=== PATIENT | female | born 1975 | race Hispanic/Latino ===

== ENCOUNTER 2022-01-25 11:48 | Inpatient (IN) | payer OTHER ==
[2022-01-25 12:25] LABS: #Eosinphils 0.1 thou/uL (0.0-0.7); #Monocytes 0.2 thou/uL (0.11-0.59); #Neutrophils 4.1 thou/uL (1.40-6.50); %Basophils 0.3 % (0.0-1.0); %Lymphocytes 19.1 % (21.0-51.0); %Monocytes 3.3 % (0.0-10.0); %Neutrophils 76.3 % (42.0-75.0); Hemoglobin 10.2 g/dL (12.0-16.0); Mean Corpuscular HGB CONC 33.3 g/dL (32.0-36.0); Mean Corpuscular Hemoglobin 31.5 pg (27.0-31.0); Mean Corpuscular Volume 94.4 fL (78.0-98.0); Mean Platelet Volume 7.3 fL (7.4-10.4); Platelet Count 289 thou/uL (130-400); RBC Distribution Width 10.8 % (11.5-14.5); Red Blood Cell (RBC) Count 3.25 mill/uL (4.20-5.40); White Blood Cell (WBC) Count 5.4 thou/uL (4.8-10.8)
[2022-01-25] MEDS ORDERED: Ondansetron PF 4 MG/2 ML Vial ONE ×2 (12:38→15:20)
[2022-01-25] MEDS ORDERED: Fentanyl 100 MCG/2 ML VIAL ONE ×2 (12:38→15:20)
[2022-01-25 12:42] LABS: ALT (SGPT) 8 U/L (8-55); AST (SGOT) 14 U/L (5-34); Albumin 3.9 g/dL (3.5-5.0); Alkaline Phosphatase 87 U/L (40-110); Anion Gap 13 mmol/L (10-20); BUN (Urea Nitrogen) 28 mg/dL (7.0-18.7); Bilirubin, Total 0.5 mg/dL (0.2-1.2); CK (CPK) 104 U/L (29-168); Calc. Creatinine Clearance 0 mL/min (70-130); Calcium 9.1 mg/dL (7.8-10.44); Carbon Dioxide 22 mmol/L (22-29); Chloride 108 mmol/L (98-107); Glucose 97 mg/dL (70-105); Lipase 49 U/L (8-78); Magnesium 1.7 mg/dL (1.6-2.6); Potassium 4.4 mmol/L (3.5-5.1); Protein, Total 6.9 g/dL (6.0-8.3); Sodium 139 mmol/L (136-145)
[2022-01-25 13:04] LABS: Bilirubin Negative (Negative); Blood, Urine 2+ (Negative); Clarity Clear (Clear); Glucose, Urine (Dipstick) Normal (Negative); Ketone, Urine Negative (Negative); Leukocyte Negative Leu/uL (Negative); Nitrite Negative (Negative); Protein, Urine (Dipstick) 100 mg/dL (Neg-Trace); Specific Gravity, Urine 1.008 (1.002-1.036); Squamous Epithelial 0-3 HPF (0-3); Urobilinogen Normal mg/dL (Less than 2); WBC/HPF 0-3 HPF (0-3)
[2022-01-25 13:08] LABS: Bacteria/HPF 1+ HPF (None Seen); Pregnancy Test - Urine (BHCG) Negative (Negative); Pregu Control Background? CLEAR/WHITE (CLR/WHITE); Pregu Control Bar Appear? YES (CONTROL BAR); Specific Gravity 1.008 (1.002-1.036)
[2022-01-25 16:13] VITALS: BMI 30.7
[2022-01-25] MEDS: Sodium Chloride 0.9% 1,000 ML IV SCH (17:08)
[2022-01-25] MEDS ORDERED: Senokot S 8.6-50 MG TAB PO PRN (18:30)
[2022-01-25] MEDS ORDERED: Loperamide HCl 2 MG CAP PO PRN (18:30)
[2022-01-25] MEDS: HYDROcodone/Acetaminophen 5/325 mg Tablet PO PRN (19:55)
[2022-01-25] MEDS: tiZANidine HCl 4 MG TAB PO SCH (19:56)
[2022-01-25] MEDS: Allopurinol 100 MG TAB PO SCH (19:56)
[2022-01-25] MEDS: Labetalol HCl 100 MG TAB PO SCH (19:56)
[2022-01-25] MEDS: Promethazine HCl 12.5 MG in Sodium Chloride 0.9% 50 ML IVPB PRN (20:32)
[2022-01-26 00:21] LABS: SARS-CoV-2 PCR by NAA Not Detected (NotDetected)
[2022-01-26] MEDS: Sodium Chloride 0.9% 1,000 ML IV SCH (00:49)
[2022-01-26] MEDS: HYDROcodone/Acetaminophen 5/325 mg Tablet PO PRN ×4 (00:52→17:34)
[2022-01-26 06:40] LABS: Hemoglobin 8.9 g/dL (12.0-16.0); Mean Corpuscular HGB CONC 33.1 g/dL (32.0-36.0); Mean Corpuscular Hemoglobin 31.8 pg (27.0-31.0); Mean Platelet Volume 7.6 fL (7.4-10.4); Platelet Count 244 thou/uL (130-400); RBC Distribution Width 10.9 % (11.5-14.5); White Blood Cell (WBC) Count 5.2 thou/uL (4.8-10.8)
[2022-01-26 06:58] LABS: Anion Gap 11 mmol/L (10-20); BUN (Urea Nitrogen) 24 mg/dL (7.0-18.7); Calc. Creatinine Clearance 27 mL/min (70-130); Calcium 8.1 mg/dL (7.8-10.44); Carbon Dioxide 23 mmol/L (22-29); Chloride 111 mmol/L (98-107); Glucose 86 mg/dL (70-105); Potassium 3.6 mmol/L (3.5-5.1); Sodium 141 mmol/L (136-145)
[2022-01-26] MEDS ORDERED: Enoxaparin Sodium 30 MG/0.3 ML SYRINGE SC SCH (09:00)
[2022-01-26 09:08] LABS: Band 1 % (5-11); Eosinophils 5 % (0-10); Lymphocytes 56 % (21-51); MDiff Complete? YES; Monocytes 2 % (0-10); Neutrophil 35 % (42-75); Platelet Morphology Comment Appears Adequate; Polychromasia SLIGHT = 2-3 cells (100X) (0-2/hpf)
[2022-01-26] MEDS: Allopurinol 100 MG TAB PO SCH ×2 (09:15→20:53)
[2022-01-26] MEDS: Losartan 25 MG TAB PO SCH ×2 (09:15→09:35)
[2022-01-26] MEDS: Calcitriol 0.25 MCG CAP PO SCH (09:15)
[2022-01-26] MEDS: Hydroxychloroquine Sulfate 200 MG TAB PO SCH (09:15)
[2022-01-26] MEDS: Labetalol HCl 100 MG TAB PO SCH ×2 (11:09→20:54)
[2022-01-26 13:53] LABS: #Basophils 0.1 thou/uL (0.0-0.2); #Eosinphils 0.2 thou/uL (0.0-0.7); #Monocytes 0.3 thou/uL (0.11-0.59); #Neutrophils 2.1 thou/uL (1.40-6.50); %Basophils 1.3 % (0.0-1.0); %Eosinophils 3.6 % (0.0-10.0); %Lymphocytes 43.7 % (21.0-51.0); %Monocytes 5.9 % (0.0-10.0); %Neutrophils 45.6 % (42.0-75.0); Hemoglobin 9.3 g/dL (12.0-16.0); Mean Corpuscular HGB CONC 34.6 g/dL (32.0-36.0); Mean Corpuscular Volume 95.6 fL (78.0-98.0); Mean Platelet Volume 7.6 fL (7.4-10.4); Platelet Count 261 thou/uL (130-400); RBC Distribution Width 11.5 % (11.5-14.5); Red Blood Cell (RBC) Count 2.81 mill/uL (4.20-5.40); White Blood Cell (WBC) Count 4.6 thou/uL (4.8-10.8)
[2022-01-26] MEDS: Lorazepam 2 MG/ML VIAL SLOW IVP PRN (16:26)
[2022-01-26] MEDS ORDERED: GoLYTELY 4,000 ml Bottle PO SCH (17:45)
[2022-01-26] MEDS: HYDROcodone/Acetaminophen 7.5/325 mg Tablet PO PRN (20:54)
[2022-01-26] MEDS: tiZANidine HCl 4 MG TAB PO SCH (20:54)
[2022-01-27] MEDS: HYDROcodone/Acetaminophen 7.5/325 mg Tablet PO PRN ×4 (00:48→22:58)
[2022-01-27 06:50] LABS: #Basophils 0.1 thou/uL (0.0-0.2); #Eosinphils 0.2 thou/uL (0.0-0.7); #Lymphocytes 2.2 thou/uL (1.20-3.40); #Monocytes 0.3 thou/uL (0.11-0.59); #Neutrophils 2.6 thou/uL (1.40-6.50); %Basophils 1.3 % (0.0-1.0); %Eosinophils 3.4 % (0.0-10.0); %Lymphocytes 41.1 % (21.0-51.0); %Monocytes 5.8 % (0.0-10.0); %Neutrophils 48.5 % (42.0-75.0); Hemoglobin 9.5 g/dL (12.0-16.0); Mean Corpuscular HGB CONC 33.7 g/dL (32.0-36.0); Mean Corpuscular Volume 94.9 fL (78.0-98.0); Mean Platelet Volume 7.2 fL (7.4-10.4); Platelet Count 263 thou/uL (130-400); RBC Distribution Width 10.9 % (11.5-14.5); Red Blood Cell (RBC) Count 2.97 mill/uL (4.20-5.40); White Blood Cell (WBC) Count 5.5 thou/uL (4.8-10.8)
[2022-01-27 07:16] LABS: ALT (SGPT) Less than 7 U/L (8-55); AST (SGOT) 14 U/L (5-34); Albumin 3.4 g/dL (3.5-5.0); Alkaline Phosphatase 73 U/L (40-110); Anion Gap 12 mmol/L (10-20); BUN (Urea Nitrogen) 18 mg/dL (7.0-18.7); Bilirubin, Total 0.3 mg/dL (0.2-1.2); Calc. Creatinine Clearance 31 mL/min (70-130); Calcium 8.3 mg/dL (7.8-10.44); Carbon Dioxide 25 mmol/L (22-29); Chloride 109 mmol/L (98-107); Glucose 78 mg/dL (70-105); Magnesium 1.6 mg/dL (1.6-2.6); Potassium 3.9 mmol/L (3.5-5.1); Protein, Total 6.4 g/dL (6.0-8.3); Sodium 142 mmol/L (136-145)
[2022-01-27] MEDS: Losartan 25 MG TAB PO SCH (08:39)
[2022-01-27] MEDS: Labetalol HCl 100 MG TAB PO SCH ×2 (08:40→20:42)
[2022-01-27] MEDS: Hydroxychloroquine Sulfate 200 MG TAB PO SCH (08:41)
[2022-01-27] MEDS: Allopurinol 100 MG TAB PO SCH ×2 (08:43→20:41)
[2022-01-27] MEDS: Calcitriol 0.25 MCG CAP PO SCH (08:43)
[2022-01-27] MEDS ORDERED: Midazolam HCl 2 mg/2 ml Vial ONE (09:12)
[2022-01-27] MEDS ORDERED: Fentanyl 100 MCG/2 ML VIAL ONE ×2 (09:13→10:16)
[2022-01-27] MEDS ORDERED: Promethazine HCl 25 MG/ML VIAL IVPB PRN (10:17)
[2022-01-27] MEDS ORDERED: Promethazine HCl 25 MG/ML VIAL IM PRN (10:17)
[2022-01-27] MEDS ORDERED: Ondansetron HCl/PF 4 MG/2 ML Vial IVP PRN (10:17)
[2022-01-27] MEDS: Promethazine HCl 12.5 MG in Sodium Chloride 0.9% 50 ML IVPB PRN (14:58)
[2022-01-27] MEDS: tiZANidine HCl 4 MG TAB PO SCH (20:41)
[2022-01-28] MEDS: HYDROcodone/Acetaminophen 5/325 mg Tablet PO PRN (02:06)
[2022-01-28] MEDS: Lorazepam 2 MG/ML VIAL SLOW IVP PRN (04:20)
[2022-01-28 07:38] LABS: #Basophils 0.1 thou/uL (0.0-0.2); #Eosinphils 0.2 thou/uL (0.0-0.7); #Lymphocytes 2.3 thou/uL (1.20-3.40); #Monocytes 0.3 thou/uL (0.11-0.59); %Basophils 1.3 % (0.0-1.0); %Eosinophils 3.8 % (0.0-10.0); %Lymphocytes 48.4 % (21.0-51.0); %Monocytes 5.8 % (0.0-10.0); %Neutrophils 40.8 % (42.0-75.0); Hemoglobin 9.4 g/dL (12.0-16.0); Mean Corpuscular HGB CONC 33.3 g/dL (32.0-36.0); Mean Corpuscular Hemoglobin 31.8 pg (27.0-31.0); Mean Corpuscular Volume 95.6 fL (78.0-98.0); Mean Platelet Volume 7.4 fL (7.4-10.4); Platelet Count 272 thou/uL (130-400); RBC Distribution Width 10.9 % (11.5-14.5); Red Blood Cell (RBC) Count 2.95 mill/uL (4.20-5.40); White Blood Cell (WBC) Count 4.9 thou/uL (4.8-10.8)
[2022-01-28 07:59] LABS: ALT (SGPT) Less than 7 U/L (8-55); AST (SGOT) 13 U/L (5-34); Albumin 3.3 g/dL (3.5-5.0); Alkaline Phosphatase 73 U/L (40-110); Anion Gap 11 mmol/L (10-20); BUN (Urea Nitrogen) 19 mg/dL (7.0-18.7); Bilirubin, Total 0.2 mg/dL (0.2-1.2); Calc. Creatinine Clearance 32 mL/min (70-130); Calcium 8.1 mg/dL (7.8-10.44); Carbon Dioxide 25 mmol/L (22-29); Chloride 109 mmol/L (98-107); Glucose 83 mg/dL (70-105); Magnesium 1.6 mg/dL (1.6-2.6); Potassium 3.9 mmol/L (3.5-5.1); Protein, Total 6.3 g/dL (6.0-8.3); Sodium 141 mmol/L (136-145)
[2022-01-28] MEDS: Allopurinol 100 MG TAB PO SCH (09:07)
[2022-01-28] MEDS: Calcitriol 0.25 MCG CAP PO SCH (09:07)
[2022-01-28] MEDS: Hydroxychloroquine Sulfate 200 MG TAB PO SCH (09:07)
[2022-01-28] MEDS: Labetalol HCl 100 MG TAB PO SCH (09:08)
[2022-01-28] MEDS: Losartan 25 MG TAB PO SCH (09:08)
[2022-01-28 09:40] VITALS: BP 143/93; TEMP 98.5
[2022-01-28] MEDS: HYDROcodone/Acetaminophen 7.5/325 mg Tablet PO PRN (10:37)
[2022-02-01] MEDS ORDERED: SEMAGLUTIDE 1 MG/0.75 ML SC SCH (09:00)
== END 2022-01-28 14:30 | disposition home or self-care (01) | DRG 394 ==
LOC: ERS 11:48 → T4-B 14:37
PROVIDERS: ADMIT Internal Medicine; ATTEND Internal Medicine
PROC: 0DB98ZX Excision of Duodenum, Via Natural or Artificial Opening Endoscopic, Diagnostic (ICD-10-PCS; principal; 2022-01-27)
PROC: 0DBN8ZX Excision of Sigmoid Colon, Via Natural or Artificial Opening Endoscopic, Diagnostic (ICD-10-PCS; 2022-01-27)
DX: K55.9 Vascular disorder of intestine, unspecified (principal); D62 Acute posthemorrhagic anemia; N17.9 Acute kidney failure, unspecified; N18.4 Chronic kidney disease, stage 4 (severe); Z20.822 Contact with and (suspected) exposure to COVID-19; E66.9 Obesity, unspecified; K57.30 Diverticulosis of large intestine without perforation or abscess without bleeding; D63.1 Anemia in chronic kidney disease; I12.9 Hypertensive chronic kidney disease with stage 1 through stage 4 chronic kidney disease, or unspecified chronic kidney disease; N05.8 Unspecified nephritic syndrome with other morphologic changes; Z68.30 Body mass index [BMI] 30.0-30.9, adult; Z90.49 Acquired absence of other specified parts of digestive tract; Z90.710 Acquired absence of both cervix and uterus; Z83.49 Family history of other endocrine, nutritional and metabolic diseases; Z79.899 Other long term (current) drug therapy
CPT/HCPCS: 36415; 74176; 80048; 80053; 81003; 81015; 81025; 82550; 83690; 83735; 84484; 85025; 88305; 93005; 96374; 96375; 96376; J2060; J2250; J2405; J2550; J3010; J7050; U0003; U0005

== ENCOUNTER 2022-02-16 18:31 | Inpatient (IN) | payer OTHER ==
[2022-02-16] MEDS ORDERED: Ondansetron PF 4 MG/2 ML Vial ONE (18:52)
[2022-02-16] MEDS ORDERED: Morphine 4 MG/ML VIAL ONE ×3 (18:52→22:20)
[2022-02-16 19:02] LABS: #Eosinphils 0.1 thou/uL (0.0-0.7); #Lymphocytes 0.7 thou/uL (1.20-3.40); #Monocytes 0.5 thou/uL (0.11-0.59); #Neutrophils 3.7 thou/uL (1.40-6.50); %Basophils 0.2 % (0.0-1.0); %Eosinophils 1.4 % (0.0-10.0); %Lymphocytes 13.2 % (21.0-51.0); %Monocytes 10.3 % (0.0-10.0); %Neutrophils 74.9 % (42.0-75.0); Mean Corpuscular HGB CONC 34.8 g/dL (32.0-36.0); Mean Corpuscular Hemoglobin 32.6 pg (27.0-31.0); Mean Corpuscular Volume 93.7 fL (78.0-98.0); Mean Platelet Volume 7.2 fL (7.4-10.4); Platelet Count 242 thou/uL (130-400); RBC Distribution Width 11.2 % (11.5-14.5); Red Blood Cell (RBC) Count 2.76 mill/uL (4.20-5.40); White Blood Cell (WBC) Count 4.9 thou/uL (4.8-10.8)
[2022-02-16 19:11] LABS: BHCG - Serum Negative (NEGATIVE); Pregs Control Background? CLEAR/WHITE (CLR/WHITE); Pregs Control Bar Appear? YES (CONTROL BAR)
[2022-02-16] MEDS ORDERED: Cefepime 2 GM VIAL ONE (19:14)
[2022-02-16] MEDS ORDERED: Acetaminophen 500 MG TAB ONE (19:14)
[2022-02-16 19:23] LABS: ALT (SGPT) 8 U/L (8-55); AST (SGOT) 17 U/L (5-34); Albumin 3.6 g/dL (3.5-5.0); Alkaline Phosphatase 76 U/L (40-110); Anion Gap 16 mmol/L (10-20); BUN (Urea Nitrogen) 27 mg/dL (7.0-18.7); Bilirubin, Total 0.3 mg/dL (0.2-1.2); Calc. Creatinine Clearance 0 mL/min (70-130); Calcium 8.6 mg/dL (7.8-10.44); Carbon Dioxide 18 mmol/L (22-29); Chloride 105 mmol/L (98-107); Globulin 3.2 g/dL (2.4-3.5); Glucose 87 mg/dL (70-105); Lipase 21 U/L (8-78); Protein, Total 6.8 g/dL (6.0-8.3); Sodium 135 mmol/L (136-145)
[2022-02-16 20:25] LABS: Bilirubin Negative (Negative); Blood, Urine 1+ (Negative); Clarity Clear (Clear); Glucose, Urine (Dipstick) Normal (Negative); Ketone, Urine Trace mg/dL (Negative); Leukocyte Negative Leu/uL (Negative); Nitrite Negative (Negative); Protein, Urine (Dipstick) 100 mg/dL (Neg-Trace); RBC/HPF 0-3 HPF (0-3); Specific Gravity, Urine 1.007 (1.002-1.036); Squamous Epithelial 0-3 HPF (0-3); Urobilinogen Normal mg/dL (Less than 2); WBC/HPF 0-3 HPF (0-3); pH, Urine 6.5 (5.0-9.0)
[2022-02-16 20:28] LABS: Bacteria/HPF 1+ HPF (None Seen)
[2022-02-16 21:36] LABS: SARS-CoV-2 NAA Rapid Test DETECTED (NotDetected)
[2022-02-16] MEDS ORDERED: Acetaminophen 500 MG TAB PO PRN (23:20)
[2022-02-16] MEDS ORDERED: Acetaminophen 650 MG Suppository PR PRN (23:20)
[2022-02-16] MEDS ORDERED: Albuterol 200 PUFF (6.7GM INHALER) INH PRN (23:20)
[2022-02-16] MEDS ORDERED: Benzonatate 100 MG CAP PO PRN (23:20)
[2022-02-16 23:56] VITALS: BMI 31.0
[2022-02-16 23:56] LABS: #Lymphocytes 0.5 thou/uL (1.20-3.40); #Monocytes 0.4 thou/uL (0.11-0.59); #Neutrophils 3.3 thou/uL (1.40-6.50); %Eosinophils 0.6 % (0.0-10.0); %Monocytes 9.2 % (0.0-10.0); %Neutrophils 78.3 % (42.0-75.0); Hemoglobin 8.9 g/dL (12.0-16.0); Mean Corpuscular HGB CONC 34.8 g/dL (32.0-36.0); Mean Corpuscular Hemoglobin 32.9 pg (27.0-31.0); Mean Corpuscular Volume 94.6 fL (78.0-98.0); Mean Platelet Volume 6.9 fL (7.4-10.4); Platelet Count 204 thou/uL (130-400); RBC Distribution Width 11.2 % (11.5-14.5); White Blood Cell (WBC) Count 4.3 thou/uL (4.8-10.8)
[2022-02-16] MEDS ORDERED: cefTRIAXone\\ROCEPHIN 2 GM in Sodium Chloride 0.9% 100 ML IVPB SCH (23:59)
[2022-02-17] MEDS: HYDROcodone/Acetaminophen 5/325 mg Tablet PO PRN ×4 (00:16→15:26)
[2022-02-17] MEDS: Sodium Chloride 0.9% 1,000 ML IV SCH ×3 (00:16→19:34)
[2022-02-17 00:21] LABS: ALT (SGPT) 9 U/L (8-55); AST (SGOT) 15 U/L (5-34); Albumin 3.5 g/dL (3.5-5.0); Alkaline Phosphatase 67 U/L (40-110); Anion Gap 14 mmol/L (10-20); BUN (Urea Nitrogen) 27 mg/dL (7.0-18.7); Bilirubin, Total 0.3 mg/dL (0.2-1.2); Calc. Creatinine Clearance 29 mL/min (70-130); Calcium 8.2 mg/dL (7.8-10.44); Carbon Dioxide 19 mmol/L (22-29); Chloride 108 mmol/L (98-107); Globulin 2.9 g/dL (2.4-3.5); Glucose 93 mg/dL (70-105); Protein, Total 6.4 g/dL (6.0-8.3); Sodium 137 mmol/L (136-145)
[2022-02-17] MEDS: Cyclobenzaprine 10 MG TAB PO PRN ×3 (03:15→16:48)
[2022-02-17 06:08] LABS: #Lymphocytes 0.6 thou/uL (1.20-3.40); #Monocytes 0.3 thou/uL (0.11-0.59); #Neutrophils 2.1 thou/uL (1.40-6.50); %Basophils 0.7 % (0.0-1.0); %Eosinophils 0.7 % (0.0-10.0); %Lymphocytes 19.7 % (21.0-51.0); %Monocytes 11.1 % (0.0-10.0); %Neutrophils 67.8 % (42.0-75.0); Hemoglobin 8.5 g/dL (12.0-16.0); Mean Corpuscular HGB CONC 34.1 g/dL (32.0-36.0); Mean Corpuscular Hemoglobin 32.5 pg (27.0-31.0); Mean Corpuscular Volume 95.4 fL (78.0-98.0); Mean Platelet Volume 7.1 fL (7.4-10.4); Platelet Count 206 thou/uL (130-400); RBC Distribution Width 11.4 % (11.5-14.5); Red Blood Cell (RBC) Count 2.62 mill/uL (4.20-5.40); White Blood Cell (WBC) Count 3.1 thou/uL (4.8-10.8)
[2022-02-17] MEDS: Acetaminophen 325 MG TAB PO PRN (06:28)
[2022-02-17 06:37] LABS: ALT (SGPT) 7 U/L (8-55); AST (SGOT) 15 U/L (5-34); Albumin 3.2 g/dL (3.5-5.0); Alkaline Phosphatase 64 U/L (40-110); Anion Gap 12 mmol/L (10-20); BUN (Urea Nitrogen) 26 mg/dL (7.0-18.7); Bilirubin, Total 0.3 mg/dL (0.2-1.2); Calc. Creatinine Clearance 30 mL/min (70-130); Calcium 7.9 mg/dL (7.8-10.44); Carbon Dioxide 20 mmol/L (22-29); Chloride 108 mmol/L (98-107); Globulin 2.9 g/dL (2.4-3.5); Glucose 87 mg/dL (70-105); Potassium 3.7 mmol/L (3.5-5.1); Protein, Total 6.1 g/dL (6.0-8.3); Sodium 136 mmol/L (136-145)
[2022-02-17] MEDS: Heparin 5,000 UNITS/ML VIAL SC SCH ×3 (08:09→20:33)
[2022-02-17] MEDS: Hydroxychloroquine Sulfate 200 MG TAB PO SCH (08:09)
[2022-02-17] MEDS: Ascorbic Acid 500 mg Chewable Tablet PO SCH (08:10)
[2022-02-17] MEDS: Zinc Sulfate 220 MG CAP PO SCH (08:10)
[2022-02-17] MEDS: Losartan 25 MG TAB PO SCH (08:10)
[2022-02-17] MEDS: Calcitriol 0.25 MCG CAP PO SCH (08:10)
[2022-02-17] MEDS: Famotidine 20 MG TAB PO SCH (08:10)
[2022-02-17] MEDS: Allopurinol 100 MG TAB PO SCH ×2 (08:10→20:34)
[2022-02-17] MEDS: Cholecalciferol (Vitamin D3) 400 UNITS TAB PO SCH (08:11)
[2022-02-17] MEDS: Labetalol HCl 100 MG TAB PO SCH ×2 (08:11→20:32)
[2022-02-17] MEDS ORDERED: Prevnar 13-Val Conj/PF 0.5 ML SYRINGE IM ONE (09:00)
[2022-02-17] MEDS ORDERED: Fioricet 325/50/40 mg Tablet PO PRN (14:23)
[2022-02-17] MEDS ORDERED: Sodium Bicarbonate Tab 325 MG TAB PO SCH (16:45)
[2022-02-17] MEDS: Ondansetron ODT 4 MG TAB PO PRN (16:47)
[2022-02-17] MEDS ORDERED: Ibuprofen 200 MG TAB PO PRN (19:00)
[2022-02-17] MEDS: cefTRIAXone\\ROCEPHIN 2 GM in Sodium Chloride 0.9% 100 ML IVPB SCH (19:33)
[2022-02-17] MEDS: Morphine 4 MG/ML VIAL SLOW IVP PRN (19:45)
[2022-02-17] MEDS: Ondansetron PF 4 MG/2 ML Vial IVP PRN (19:46)
[2022-02-17] MEDS: tiZANidine HCl 4 MG TAB PO SCH (20:34)
[2022-02-18] MEDS: Acetaminophen 325 MG TAB PO PRN (00:01)
[2022-02-18 01:17] LABS: Creatinine, Urine 52.53 mg/dL (47-110)
[2022-02-18] MEDS: Cyclobenzaprine 10 MG TAB PO PRN (02:38)
[2022-02-18] MEDS: HYDROcodone/Acetaminophen 5/325 mg Tablet PO PRN ×2 (02:38→10:15)
[2022-02-18] MEDS: Sodium Chloride 0.9% 1,000 ML IV SCH ×2 (04:48→16:56)
[2022-02-18 06:06] LABS: #Lymphocytes 0.9 thou/uL (1.20-3.40); #Monocytes 0.3 thou/uL (0.11-0.59); #Neutrophils 1.1 thou/uL (1.40-6.50); %Basophils 0.3 % (0.0-1.0); %Eosinophils 0.6 % (0.0-10.0); %Lymphocytes 38.3 % (21.0-51.0); %Monocytes 13.1 % (0.0-10.0); %Neutrophils 47.7 % (42.0-75.0); Hemoglobin 9.1 g/dL (12.0-16.0); Mean Corpuscular Hemoglobin 32.5 pg (27.0-31.0); Mean Corpuscular Volume 95.5 fL (78.0-98.0); Mean Platelet Volume 6.8 fL (7.4-10.4); Platelet Count 173 thou/uL (130-400); RBC Distribution Width 11.3 % (11.5-14.5); Red Blood Cell (RBC) Count 2.78 mill/uL (4.20-5.40); White Blood Cell (WBC) Count 2.4 thou/uL (4.8-10.8)
[2022-02-18 06:31] LABS: Anion Gap 14 mmol/L (10-20); BUN (Urea Nitrogen) 25 mg/dL (7.0-18.7); Calc. Creatinine Clearance 30 mL/min (70-130); Calcium 8.3 mg/dL (7.8-10.44); Carbon Dioxide 21 mmol/L (22-29); Chloride 105 mmol/L (98-107); Glucose 80 mg/dL (70-105); Potassium 3.9 mmol/L (3.5-5.1); Sodium 136 mmol/L (136-145)
[2022-02-18] MEDS: Famotidine 20 MG TAB PO SCH (08:38)
[2022-02-18] MEDS: Allopurinol 100 MG TAB PO SCH ×2 (08:38→20:20)
[2022-02-18] MEDS: Calcitriol 0.25 MCG CAP PO SCH (08:38)
[2022-02-18] MEDS: Ascorbic Acid 500 mg Chewable Tablet PO SCH (08:38)
[2022-02-18] MEDS: Zinc Sulfate 220 MG CAP PO SCH (08:38)
[2022-02-18] MEDS: Sodium Bicarbonate Tab 325 MG TAB PO SCH (08:38)
[2022-02-18] MEDS: Labetalol HCl 100 MG TAB PO SCH ×2 (08:39→20:19)
[2022-02-18] MEDS: Losartan 25 MG TAB PO SCH (08:40)
[2022-02-18] MEDS: Cholecalciferol (Vitamin D3) 400 UNITS TAB PO SCH (08:40)
[2022-02-18] MEDS: Hydroxychloroquine Sulfate 200 MG TAB PO SCH (08:41)
[2022-02-18] MEDS: Heparin 5,000 UNITS/ML VIAL SC SCH ×3 (08:41→20:20)
[2022-02-18] MEDS: Ondansetron ODT 4 MG TAB PO PRN (11:18)
[2022-02-18] MEDS: Lorazepam 0.5 MG TAB PO PRN (14:25)
[2022-02-18] MEDS: Ondansetron PF 4 MG/2 ML Vial IVP PRN ×2 (14:30→20:19)
[2022-02-18] MEDS: Morphine 4 MG/ML VIAL SLOW IVP PRN ×2 (14:38→20:24)
[2022-02-18] MEDS: cefTRIAXone\\ROCEPHIN 2 GM in Sodium Chloride 0.9% 100 ML IVPB SCH (20:19)
[2022-02-18] MEDS: tiZANidine HCl 4 MG TAB PO SCH (20:19)
[2022-02-19] MEDS: Sodium Chloride 0.9% 1,000 ML IV SCH (02:35)
[2022-02-19] MEDS: Morphine 4 MG/ML VIAL SLOW IVP PRN ×5 (02:42→19:42)
[2022-02-19] MEDS: Ondansetron PF 4 MG/2 ML Vial IVP PRN ×3 (02:43→16:46)
[2022-02-19] MEDS: Cepastat Lozenges 1 LOZ PO PRN ×3 (05:00→19:25)
[2022-02-19 06:39] LABS: Hemoglobin 9.6 g/dL (12.0-16.0); Mean Corpuscular HGB CONC 33.7 g/dL (32.0-36.0); Mean Corpuscular Hemoglobin 32.1 pg (27.0-31.0); Mean Corpuscular Volume 95.2 fL (78.0-98.0); Mean Platelet Volume 7.6 fL (7.4-10.4); Platelet Count 163 thou/uL (130-400); RBC Distribution Width 11.5 % (11.5-14.5); White Blood Cell (WBC) Count 2.4 thou/uL (4.8-10.8)
[2022-02-19 06:48] LABS: Anion Gap 12 mmol/L (10-20); BUN (Urea Nitrogen) 24 mg/dL (7.0-18.7); Calc. Creatinine Clearance 32 mL/min (70-130); Carbon Dioxide 21 mmol/L (22-29); Chloride 108 mmol/L (98-107); Potassium 3.4 mmol/L (3.5-5.1); Sodium 138 mmol/L (136-145)
[2022-02-19 06:49] LABS: Calcium 7.9 mg/dL (7.8-10.44); Glucose 86 mg/dL (70-105)
[2022-02-19 07:41] LABS: Band 25 % (5-11); Eosinophils 3 % (0-10); Lymphocytes 38 % (21-51); MDiff Complete? YES; Monocytes 9 % (0-10); Neutrophil 16 % (42-75); Platelet Morphology Comment Appears Adequate; Polychromasia SLIGHT = 2-3 cells (100X) (0-2/hpf); Reactive Lymphocytes 9 % (0-10)
[2022-02-19] MEDS: Famotidine 20 MG TAB PO SCH (08:36)
[2022-02-19] MEDS: Ascorbic Acid 500 mg Chewable Tablet PO SCH (08:36)
[2022-02-19] MEDS: Labetalol HCl 100 MG TAB PO SCH ×2 (08:36→19:43)
[2022-02-19] MEDS: Calcitriol 0.25 MCG CAP PO SCH (08:36)
[2022-02-19] MEDS: Sodium Bicarbonate Tab 325 MG TAB PO SCH (08:36)
[2022-02-19] MEDS: Cholecalciferol (Vitamin D3) 400 UNITS TAB PO SCH (08:36)
[2022-02-19] MEDS: Heparin 5,000 UNITS/ML VIAL SC SCH ×3 (08:37→19:41)
[2022-02-19] MEDS: Allopurinol 100 MG TAB PO SCH ×2 (08:37→19:44)
[2022-02-19] MEDS: Losartan 25 MG TAB PO SCH (08:37)
[2022-02-19] MEDS: Hydroxychloroquine Sulfate 200 MG TAB PO SCH (08:37)
[2022-02-19] MEDS: Zinc Sulfate 220 MG CAP PO SCH (08:37)
[2022-02-19] MEDS ORDERED: Senokot S 8.6-50 MG TAB PO PRN (10:50)
[2022-02-19] MEDS ORDERED: hydrALAZINE 20 MG/ML VIAL SLOW IVP PRN (10:50)
[2022-02-19] MEDS ORDERED: Artificial Tear Sol 15 ML BOT EA EYE PRN (10:50)
[2022-02-19] MEDS ORDERED: Loperamide HCl 2 MG CAP PO PRN (10:50)
[2022-02-19] MEDS ORDERED: Loratadine 10 MG TAB PO PRN (10:50)
[2022-02-19] MEDS ORDERED: Calcium Carbonate 500 MG ChewTAB PO PRN (10:50)
[2022-02-19] MEDS ORDERED: Acetaminophen 500 MG TAB PO PRN (10:50)
[2022-02-19] MEDS ORDERED: Potassium Chloride 20 MEQ TAB PO SCH (11:00)
[2022-02-19] MEDS: cefTRIAXone\\ROCEPHIN 2 GM in Sodium Chloride 0.9% 100 ML IVPB SCH (19:40)
[2022-02-19] MEDS: tiZANidine HCl 4 MG TAB PO SCH (19:41)
[2022-02-19] MEDS ORDERED: Promethazine HCl 12.5 MG in Sodium Chloride 0.9% 50 ML IVPB SCH (21:00)
[2022-02-20] MEDS: Morphine 4 MG/ML VIAL SLOW IVP PRN ×4 (04:55→21:02)
[2022-02-20] MEDS: Cepastat Lozenges 1 LOZ PO PRN ×2 (04:57→21:31)
[2022-02-20 06:37] LABS: Hemoglobin 9.7 g/dL (12.0-16.0); Mean Corpuscular HGB CONC 33.7 g/dL (32.0-36.0); Mean Corpuscular Volume 95.1 fL (78.0-98.0); Mean Platelet Volume 6.8 fL (7.4-10.4); Platelet Count 149 thou/uL (130-400); RBC Distribution Width 11.7 % (11.5-14.5); Red Blood Cell (RBC) Count 3.03 mill/uL (4.20-5.40); White Blood Cell (WBC) Count 2.4 thou/uL (4.8-10.8)
[2022-02-20 06:57] LABS: Band 10 % (5-11); Eosinophils 2 % (0-10); Lymphocytes 59 % (21-51); MDiff Complete? YES; Monocytes 6 % (0-10); Neutrophil 17 % (42-75); Reactive Lymphocytes 6 % (0-10)
[2022-02-20 07:00] LABS: ALT (SGPT) 15 U/L (8-55); AST (SGOT) 32 U/L (5-34); Albumin 3.2 g/dL (3.5-5.0); Alkaline Phosphatase 61 U/L (40-110); Anion Gap 11 mmol/L (10-20); BUN (Urea Nitrogen) 19 mg/dL (7.0-18.7); Bilirubin, Total 0.2 mg/dL (0.2-1.2); CRP (Inflammatory) 0.99 mg/dL (= or < 0.5); Calc. Creatinine Clearance 33 mL/min (70-130); Calcium 8.4 mg/dL (7.8-10.44); Carbon Dioxide 23 mmol/L (22-29); Chloride 109 mmol/L (98-107); Glucose 79 mg/dL (70-105); Magnesium 1.7 mg/dL (1.6-2.6); Potassium 3.9 mmol/L (3.5-5.1); Protein, Total 6.2 g/dL (6.0-8.3); Sodium 139 mmol/L (136-145)
[2022-02-20 07:02] LABS: Lactic Acid 0.4 mmol/L (0.5-2.2)
[2022-02-20] MEDS: Sodium Bicarbonate Tab 325 MG TAB PO SCH (08:51)
[2022-02-20] MEDS: Ascorbic Acid 500 mg Chewable Tablet PO SCH (08:51)
[2022-02-20] MEDS: Famotidine 20 MG TAB PO SCH (08:52)
[2022-02-20] MEDS: Allopurinol 100 MG TAB PO SCH ×2 (08:52→21:03)
[2022-02-20] MEDS: Calcitriol 0.25 MCG CAP PO SCH (08:52)
[2022-02-20] MEDS: Cholecalciferol (Vitamin D3) 400 UNITS TAB PO SCH (08:52)
[2022-02-20] MEDS: Labetalol HCl 100 MG TAB PO SCH ×2 (08:52→21:31)
[2022-02-20] MEDS: Zinc Sulfate 220 MG CAP PO SCH (08:52)
[2022-02-20] MEDS: Losartan 25 MG TAB PO SCH (08:52)
[2022-02-20] MEDS: Heparin 5,000 UNITS/ML VIAL SC SCH ×3 (08:53→21:03)
[2022-02-20] MEDS: Hydroxychloroquine Sulfate 200 MG TAB PO SCH (08:54)
[2022-02-20] MEDS: Ondansetron PF 4 MG/2 ML Vial IVP PRN ×3 (10:56→21:03)
[2022-02-20 16:42] LABS: Phosphorus 3.8 mg/dL (2.3-4.7)
[2022-02-20] MEDS ORDERED: Sodium Chloride 0.9% 1,000 ML IV SCH (18:15)
[2022-02-20] MEDS: tiZANidine HCl 4 MG TAB PO SCH (21:02)
[2022-02-20] MEDS: cefTRIAXone\\ROCEPHIN 2 GM in Sodium Chloride 0.9% 100 ML IVPB SCH (21:04)
[2022-02-20] MEDS: Lorazepam 0.5 MG TAB PO PRN (21:37)
[2022-02-21] MEDS: Ondansetron PF 4 MG/2 ML Vial IVP PRN (05:34)
[2022-02-21] MEDS: Morphine 4 MG/ML VIAL SLOW IVP PRN (05:34)
[2022-02-21 06:46] LABS: Anion Gap 12 mmol/L (10-20); BUN (Urea Nitrogen) 18 mg/dL (7.0-18.7); Calc. Creatinine Clearance 35 mL/min (70-130); Calcium 8.4 mg/dL (7.8-10.44); Carbon Dioxide 24 mmol/L (22-29); Chloride 108 mmol/L (98-107); Glucose 80 mg/dL (70-105); Potassium 4.2 mmol/L (3.5-5.1); Sodium 140 mmol/L (136-145)
[2022-02-21 07:54] LABS: Band 24 % (5-11); Eosinophils 2 % (0-10); Hemoglobin 9.9 g/dL (12.0-16.0); Lymphocytes 46 % (21-51); MDiff Complete? YES; Mean Corpuscular HGB CONC 33.4 g/dL (32.0-36.0); Mean Corpuscular Hemoglobin 31.9 pg (27.0-31.0); Mean Corpuscular Volume 95.4 fL (78.0-98.0); Mean Platelet Volume 7.3 fL (7.4-10.4); Monocytes 4 % (0-10); Neutrophil 21 % (42-75); Platelet Count 124 thou/uL (130-400); Platelet Morphology Comment Appears Decreased; Polychromasia SLIGHT = 2-3 cells (100X) (0-2/hpf); RBC Distribution Width 11.4 % (11.5-14.5); Reactive Lymphocytes 2 % (0-10); Red Blood Cell (RBC) Count 3.09 mill/uL (4.20-5.40)
[2022-02-21 07:58] VITALS: BP 160/95; TEMP 98.5
[2022-02-21] MEDS: Famotidine 20 MG TAB PO SCH (07:58)
[2022-02-21] MEDS: Ondansetron ODT 4 MG TAB PO PRN (07:58)
[2022-02-21] MEDS: Sodium Bicarbonate Tab 325 MG TAB PO SCH (07:59)
[2022-02-21] MEDS: Hydroxychloroquine Sulfate 200 MG TAB PO SCH (07:59)
[2022-02-21] MEDS: Ascorbic Acid 500 mg Chewable Tablet PO SCH (07:59)
[2022-02-21] MEDS: Allopurinol 100 MG TAB PO SCH (07:59)
[2022-02-21] MEDS: Cholecalciferol (Vitamin D3) 400 UNITS TAB PO SCH (07:59)
[2022-02-21] MEDS: Zinc Sulfate 220 MG CAP PO SCH (07:59)
[2022-02-21] MEDS: Labetalol HCl 100 MG TAB PO SCH (07:59)
[2022-02-21] MEDS: Calcitriol 0.25 MCG CAP PO SCH (07:59)
[2022-02-21] MEDS: Heparin 5,000 UNITS/ML VIAL SC SCH (07:59)
[2022-02-21] MEDS: Losartan 25 MG TAB PO SCH (07:59)
[2022-02-21 15:02] LABS: Urine Total Volume 1250 mL (600-1600)
[2022-02-21 15:02] LABS: Body Surface Area 1.91
[2022-02-21 15:59] LABS: Protein - 24 Hr 5925 mg/24 hr (Less than 300); Protein, Urine 474 mg/dL (1-14)
[2022-02-21 16:28] LABS: Creatinine, Urine 72.8 mg/dL (47-110)
[2022-02-22] MEDS ORDERED: Semaglutide [Ozempic] 1 MG/0.75 ML Pen.Injctr SC SCH (09:00)
== END 2022-02-21 15:30 | disposition home or self-care (01) | DRG 871 ==
LOC: ERS 18:31 → T4-B 22:21
PROVIDERS: ADMIT Family Medicine; ATTEND Internal Medicine
PROC: 3E03329 Introduction of Other Anti-infective into Peripheral Vein, Percutaneous Approach (ICD-10-PCS; principal; 2022-02-16)
PROC: 8E0ZXY6 Isolation (ICD-10-PCS; 2022-02-16)
DX: A41.9 Sepsis, unspecified organism (principal); U07.1 COVID-19; N39.0 Urinary tract infection, site not specified; N18.4 Chronic kidney disease, stage 4 (severe); E87.2 Acidosis; N17.9 Acute kidney failure, unspecified; N25.81 Secondary hyperparathyroidism of renal origin; R65.20 Severe sepsis without septic shock; I12.9 Hypertensive chronic kidney disease with stage 1 through stage 4 chronic kidney disease, or unspecified chronic kidney disease; D63.1 Anemia in chronic kidney disease; E66.9 Obesity, unspecified; E87.6 Hypokalemia; Z90.710 Acquired absence of both cervix and uterus; Z68.31 Body mass index [BMI] 31.0-31.9, adult
CPT/HCPCS: 36415; 36416; 71250; 76770; 80048; 80053; 81003; 81015; 82306; 82570; 82575; 83605; 83690; 83735; 83970; 84100; 84145; 84156; 84703; 85025; 85379; 86140; 87040; 87086; 93005; 96365; 96375; 96376; J0692; J0696; J1644; J2270; J2405; J2550; J3490; J7050; Q0162

== ENCOUNTER 2022-06-17 11:01 | Observation (INO) | payer OTHER ==
[2022-06-17 11:41] LABS: #Basophils 0.1 thou/uL (0.0-0.2); #Eosinphils 0.1 thou/uL (0.0-0.7); #Lymphocytes 1.8 thou/uL (1.20-3.40); #Monocytes 0.4 thou/uL (0.11-0.59); #Neutrophils 4.2 thou/uL (1.40-6.50); %Basophils 1.2 % (0.0-1.0); %Eosinophils 1.6 % (0.0-10.0); %Lymphocytes 27.9 % (21.0-51.0); %Monocytes 5.5 % (0.0-10.0); %Neutrophils 63.8 % (42.0-75.0); Hemoglobin 10.5 g/dL (12.0-16.0); Mean Corpuscular HGB CONC 33.6 g/dL (32.0-36.0); Mean Corpuscular Hemoglobin 31.5 pg (27.0-31.0); Mean Corpuscular Volume 93.6 fL (78.0-98.0); Mean Platelet Volume 7.9 fL (7.4-10.4); Platelet Count 277 thou/uL (130-400); RBC Distribution Width 10.9 % (11.5-14.5); Red Blood Cell (RBC) Count 3.33 mill/uL (4.20-5.40); White Blood Cell (WBC) Count 6.6 thou/uL (4.8-10.8)
[2022-06-17 12:15] LABS: ALT (SGPT) 9 U/L (8-55); AST (SGOT) 16 U/L (5-34); Albumin 4.2 g/dL (3.5-5.0); Alkaline Phosphatase 82 U/L (40-110); Anion Gap 13 mmol/L (10-20); BUN (Urea Nitrogen) 32 mg/dL (7.0-18.7); Bilirubin, Total 0.5 mg/dL (0.2-1.2); Calc. Creatinine Clearance 0 mL/min (70-130); Calcium 9.3 mg/dL (7.8-10.44); Carbon Dioxide 22 mmol/L (22-29); Chloride 109 mmol/L (98-107); Estimated GFR 16; Globulin 3.2 g/dL (2.4-3.5); Glucose 90 mg/dL (70-105); Lipase 44 U/L (8-78); Potassium 3.9 mmol/L (3.5-5.1); Protein, Total 7.4 g/dL (6.0-8.3); Sodium 140 mmol/L (136-145)
[2022-06-17 12:24] LABS: CKMB 0.8 ng/mL (0-6.6)
[2022-06-17] MEDS ORDERED: Aspirin Chewable 81 MG TAB ONE (14:09)
[2022-06-17] MEDS ORDERED: Nitroglycerin 0.4 MG TAB 1 EACH ONE (14:09)
[2022-06-17] MEDS ORDERED: Ondansetron ODT 4 MG TAB PO PRN (15:23)
[2022-06-17] MEDS ORDERED: Ondansetron ODT 4 MG TAB SL PRN (15:34)
[2022-06-17] MEDS ORDERED: Lorazepam 0.5 MG TAB PO PRN (15:37)
[2022-06-17 15:39] LABS: Troponin I 0.011 ng/mL (< 0.028)
[2022-06-17 15:43] VITALS: BMI 28.0
[2022-06-17 16:09] LABS: SARS-CoV-2 NAA Rapid Test Not Detected (NotDetected)
[2022-06-17] MEDS ORDERED: Lidocaine 2% Viscous Solution 10 ML, Aluminum & Magnesium Hydroxide 30 ML SSW SCH (16:15)
[2022-06-17] MEDS ORDERED: Sucralfate 1 GM/10 ML UDCUP PO SCH (16:45)
[2022-06-17] MEDS ORDERED: Sucralfate 1 GM/10 ML UDCUP ONE (17:23)
[2022-06-17] MEDS ORDERED: Labetalol HCl 100 MG TAB PO SCH (21:00)
[2022-06-17] MEDS: tiZANidine HCl 4 MG TAB PO SCH (21:06)
[2022-06-17] MEDS: Heparin 5,000 UNITS/ML VIAL SC SCH (21:06)
[2022-06-17] MEDS: Allopurinol 100 MG TAB PO SCH (21:06)
[2022-06-17 21:17] LABS: Troponin I 0.015 ng/mL (< 0.028)
[2022-06-18] MEDS ORDERED: Lactated Ringer's 500 ML IV SCH (02:15)
[2022-06-18 02:26] LABS: #Basophils 0.1 thou/uL (0.0-0.2); #Eosinphils 0.1 thou/uL (0.0-0.7); #Lymphocytes 2.1 thou/uL (1.20-3.40); #Monocytes 0.4 thou/uL (0.11-0.59); #Neutrophils 3.1 thou/uL (1.40-6.50); %Eosinophils 2.2 % (0.0-10.0); %Lymphocytes 36.7 % (21.0-51.0); %Monocytes 6.4 % (0.0-10.0); %Neutrophils 53.7 % (42.0-75.0); Hemoglobin 9.2 g/dL (12.0-16.0); Mean Corpuscular HGB CONC 33.2 g/dL (32.0-36.0); Mean Corpuscular Hemoglobin 31.1 pg (27.0-31.0); Mean Corpuscular Volume 93.9 fL (78.0-98.0); Mean Platelet Volume 7.7 fL (7.4-10.4); Platelet Count 215 thou/uL (130-400); Red Blood Cell (RBC) Count 2.94 mill/uL (4.20-5.40); White Blood Cell (WBC) Count 5.8 thou/uL (4.8-10.8)
[2022-06-18 02:46] LABS: Troponin I 0.021 ng/mL (< 0.028)
[2022-06-18 02:48] LABS: Anion Gap 13 mmol/L (10-20); BUN (Urea Nitrogen) 35 mg/dL (7.0-18.7); Calc. Creatinine Clearance 24 mL/min (70-130); Calcium 8.8 mg/dL (7.8-10.44); Carbon Dioxide 22 mmol/L (22-29); Chloride 109 mmol/L (98-107); Estimated GFR 16; Glucose 90 mg/dL (70-105); Sodium 140 mmol/L (136-145)
[2022-06-18] MEDS ORDERED: Famotidine 20 MG TAB PO SCH (03:15)
[2022-06-18] MEDS: Acetaminophen 325 MG TAB PO PRN ×3 (03:33→21:31)
[2022-06-18 07:05] LABS: Troponin I 0.015 ng/mL (< 0.028)
[2022-06-18] MEDS: Allopurinol 100 MG TAB PO SCH (08:48)
[2022-06-18] MEDS: Lactated Ringer's 1,000 ML IV SCH ×3 (08:48→22:03)
[2022-06-18] MEDS: Hydroxychloroquine Sulfate 200 MG TAB PO SCH (08:48)
[2022-06-18 09:11] LABS: BHCG - Serum Negative (NEGATIVE); Pregs Control Background? CLEAR/WHITE (CLR/WHITE); Pregs Control Bar Appear? YES (CONTROL BAR)
[2022-06-18] MEDS ORDERED: ADENOSINE 60 MG/20 ML VIAL ONE (09:19)
[2022-06-18] MEDS ORDERED: Allopurinol 100 MG TAB PO SCH (13:45)
[2022-06-18] MEDS: Heparin 5,000 UNITS/ML VIAL SC SCH ×3 (14:44→20:08)
[2022-06-18] MEDS ORDERED: hydrALAZINE 20 MG/ML VIAL SLOW IVP PRN (17:44)
[2022-06-18] MEDS: tiZANidine HCl 4 MG TAB PO SCH (20:08)
[2022-06-19 07:41] VITALS: TEMP 97.8
[2022-06-19 07:48] LABS: Anion Gap 13 mmol/L (10-20); BUN (Urea Nitrogen) 25 mg/dL (7.0-18.7); Calc. Creatinine Clearance 26 mL/min (70-130); Calcium 8.8 mg/dL (7.8-10.44); Carbon Dioxide 23 mmol/L (22-29); Chloride 109 mmol/L (98-107); Estimated GFR 18; Glucose 92 mg/dL (70-105); Potassium 4.1 mmol/L (3.5-5.1); Sodium 141 mmol/L (136-145)
[2022-06-19] MEDS: Hydroxychloroquine Sulfate 200 MG TAB PO SCH (08:37)
[2022-06-19] MEDS: Heparin 5,000 UNITS/ML VIAL SC SCH (08:37)
[2022-06-19] MEDS: Lactated Ringer's 1,000 ML IV SCH (08:47)
[2022-06-19 12:29] VITALS: BP 177/95
[2022-06-19] MEDS ORDERED: Labetalol HCl 100 MG TAB PO SCH (12:37)
[2022-06-20] MEDS ORDERED: FLU VACC QS2022-23(6MOS UP)/PF 60 MCG/0.5 ML SYRINGE IM ONE (09:00)
[2022-06-20] MEDS ORDERED: Prevnar 13-Val Conj/PF 0.5 ML SYRINGE IM ONE (09:00)
== END 2022-06-19 14:15 | disposition home or self-care (01) ==
LOC: ERS 11:01 → ERHOLD 14:27 → 2SW 19:52
PROVIDERS: ADMIT Emergency Medicine; ATTEND Emergency Medicine
DX: R07.2 Precordial pain (principal); I12.9 Hypertensive chronic kidney disease with stage 1 through stage 4 chronic kidney disease, or unspecified chronic kidney disease; N18.4 Chronic kidney disease, stage 4 (severe); D63.1 Anemia in chronic kidney disease; N17.9 Acute kidney failure, unspecified; E66.9 Obesity, unspecified; Z68.28 Body mass index [BMI] 28.0-28.9, adult; Z79.899 Other long term (current) drug therapy; Z20.822 Contact with and (suspected) exposure to COVID-19
CPT/HCPCS: 36415; 71045; 78452; 80048; 80053; 82553; 83690; 84484; 84703; 85025; 93005; 93010; 93017; 94760; 96372; 96374; A9500; G0378; J0153; J0360; J1644; J7120; Q0162; U0002

== ENCOUNTER 2022-10-31 21:07 | Emergency (ER) | payer OTHER ==
[2022-10-31] MEDS ORDERED: Mag-Al 1200 mg/1200 mg/30 ML UDCUP ONE (23:08)
[2022-10-31] MEDS ORDERED: Lidocaine Viscous Sol 2% 15 ml UD Cup ONE (23:08)
[2022-10-31 23:14] LABS: #Eosinphils 0.1 thou/uL (0.0-0.7); #Lymphocytes 1.9 thou/uL (1.20-3.40); #Monocytes 0.5 thou/uL (0.11-0.59); #Neutrophils 4.1 thou/uL (1.40-6.50); %Lymphocytes 29.7 % (21.0-51.0); %Neutrophils 62.3 % (42.0-75.0); Hemoglobin 10.9 g/dL (12.0-16.0); Mean Corpuscular Hemoglobin 31.9 pg (27.0-31.0); Mean Corpuscular Volume 93.9 fl (78.0-98.0); Mean Platelet Volume 7.6 fL (7.4-10.4); Platelet Count 206 10x3/uL (130-400); RBC Distribution Width 10.5 % (11.5-14.5); Red Blood Cell (RBC) Count 3.41 mill/uL (4.20-5.40); White Blood Cell (WBC) Count 6.5 10x3/uL (4.8-10.8)
[2022-10-31 23:22] LABS: BHCG - Serum Negative (NEGATIVE); Pregs Control Background? CLEAR/WHITE (CLR/WHITE); Pregs Control Bar Appear? YES (CONTROL BAR)
[2022-10-31 23:34] LABS: ALT (SGPT) 11 U/L (8-55); AST (SGOT) 16 U/L (5-34); Alkaline Phosphatase 97 U/L (40-110); Anion Gap 17 mmol/L (10-20); BUN (Urea Nitrogen) 36 mg/dL (7.0-18.7); Calc. Creatinine Clearance 0 mL/min (70-130); Calcium 8.8 mg/dL (7.8-10.44); Carbon Dioxide 22 mmol/L (22-29); Chloride 109 mmol/L (98-107); Estimated GFR 16; Globulin 3.5 g/dL (2.4-3.5); Glucose 90 mg/dL (70-105); Potassium 4.3 mmol/L (3.5-5.1); Protein, Total 7.5 g/dL (6.0-8.3); Sodium 144 mmol/L (136-145)
[2022-10-31] MEDS ORDERED: Lorazepam 1 MG TAB ONE (23:35)
[2022-11-01] MEDS ORDERED: Ketorolac Tromethamine 30 MG/ML VIAL ONE (00:06)
[2022-11-01] MEDS ORDERED: Dexamethasone 4 MG TAB ONE (00:07)
[2022-11-01 00:19] LABS: Bilirubin, Total 0.3 mg/dL (0.2-1.2)
== END 2022-11-01 01:30 | disposition home or self-care (01) ==
LOC: ERS 21:07
DX: B34.9 Viral infection, unspecified (principal); I12.0 Hypertensive chronic kidney disease with stage 5 chronic kidney disease or end stage renal disease; N18.6 End stage renal disease
CPT/HCPCS: 36415; 71045; 80053; 84703; 85025; 96372; J1885; J8540

== ENCOUNTER 2023-03-10 12:29 | Outpatient (CLI) | payer OTHER | END 2023-03-10 12:30 | disposition home or self-care (01) | LOC: BICMRI 12:29 | PROVIDERS: ATTEND Specialist | DX: M54.31 Sciatica, right side (principal); M25.9 Joint disorder, unspecified; M51.37 Other intervertebral disc degeneration, lumbosacral region | CPT/HCPCS: 72148 ==

== ENCOUNTER 2024-04-21 18:22 | Emergency (ER) | payer OTHER ==
[2024-04-21] MEDS ORDERED: Metoclopramide HCl 10 MG (2 mL) VIAL ONE (18:48)
[2024-04-21 19:44] LABS: #Basophils 0.05 10x3/uL (0.0-0.2); %Basophils 0.7 % (0.0-1.0); %Eosinophils 2.3 % (0.0-10.0); %Lymphocytes 30.2 % (21.0-51.0); %Monocytes 5.2 % (0.0-10.0); %Neutrophils 61.5 % (42.0-75.0); Hematocrit 29.4 % (36.0-47.0); Hemoglobin 9.7 g/dL (12.0-16.0); Mean Corpuscular Hemoglobin 30.7 pg (27.0-31.0); Mean Platelet Volume 9.8 fL (7.4-10.4); Platelet Count 255 10x3/uL (130-400); RBC Distribution Width 11.9 % (11.5-14.5); Red Blood Cell (RBC) Count 3.16 mill/uL (4.20-5.40)
[2024-04-21 19:56] LABS: Amphetamine Not Detected (NotDetected); Barbiturates Screen Not Detected (NotDetected); Benzodiazepine Screen Detected (NotDetected); Cocaine Metabolite Screen Not Detected (NotDetected); Methadone Not Detected (NotDetected); Methamphetamine Not Detected (NotDetected); Opiate Screen Not Detected (NotDetected); Oxycodone Screen Not Detected (NotDetected); Phencyclidine (PCP) Not Detected (NotDetected); THC/Cannabinoid Screen Not Detected (NotDetected); Tricyclic Screen Not Detected (NotDetected)
[2024-04-21 20:01] LABS: ALT (SGPT) 6 U/L (8-55); AST (SGOT) 13 U/L (5-34); Acetaminophen Less than 10 mcg/mL (10.0-30.0); Albumin 3.3 g/dL (3.5-5.0); Alcohol Less than 10.0 mg/dL (Less than 10); Alkaline Phosphatase 118 U/L (40-110); Anion Gap 15 mmol/L (10-20); BUN (Urea Nitrogen) 35 mg/dL (7.0-18.7); Bilirubin, Total 0.3 mg/dL (0.2-1.2); Calc. Creatinine Clearance 0 mL/min (70-130); Calcium 8.2 mg/dL (7.8-10.44); Carbon Dioxide 21 mmol/L (22-29); Chloride 110 mmol/L (98-107); Estimated GFR 14; Globulin 3.6 g/dL (2.4-3.5); Glucose 94 mg/dL (70-105); Potassium 3.7 mmol/L (3.5-5.1); Protein, Total 6.9 g/dL (6.0-8.3); Salicylate Less than 8.0 mg/dL (15.0-30.0); Sodium 142 mmol/L (136-145)
[2024-04-21 20:06] LABS: Troponin I 0.019 ng/mL (< 0.028)
[2024-04-21] MEDS ORDERED: Lorazepam 2 MG/ML VIAL ONE (20:12)
[2024-04-21 20:20] LABS: HCG, Total Quant 2.7 mIU/mL (See Ranges)
[2024-04-21 20:24] LABS: Thyroid Stimulating Hormone 1.2869 uIU/mL (0.35-4.94)
== END 2024-04-21 22:21 | disposition home or self-care (01) ==
LOC: ERS 18:22
DX: I95.1 Orthostatic hypotension (principal); F41.9 Anxiety disorder, unspecified; I12.0 Hypertensive chronic kidney disease with stage 5 chronic kidney disease or end stage renal disease; N18.6 End stage renal disease
CPT/HCPCS: 36415; 71045; 80053; 80306; 80307; 84443; 84484; 84702; 85025; 93005; 96374; 96375; 96376; J2060; J2765

== ENCOUNTER 2024-10-03 23:45 | Emergency (ER) | payer OTHER ==
[2024-10-04 00:34] LABS: #Basophils 0.07 10x3/uL (0.0-0.2); %Basophils 0.9 % (0.0-1.0); %Lymphocytes 29.8 % (21.0-51.0); %Monocytes 5.9 % (0.0-10.0); Hematocrit 25.3 % (36.0-47.0); Hemoglobin 8.2 g/dL (12.0-16.0); Mean Corpuscular HGB CONC 32.4 g/dL (32.0-36.0); Mean Corpuscular Hemoglobin 30.3 pg (27.0-31.0); Mean Corpuscular Volume 93.4 fL (78.0-98.0); Mean Platelet Volume 9.5 fL (7.4-10.4); Platelet Count 293 10x3/uL (130-400); RBC Distribution Width 12.6 % (11.5-14.5); Red Blood Cell (RBC) Count 2.71 mill/uL (4.20-5.40)
[2024-10-04] MEDS ORDERED: Methocarbamol 500 MG TAB ONE ×2 (00:37→06:43)
[2024-10-04] MEDS ORDERED: HYDROcodone/Acetaminophen 5/325 mg Tablet ONE ×2 (00:38→06:44)
[2024-10-04 00:51] LABS: BHCG - Serum Negative (NEGATIVE); Pregs Control Background? CLEAR/WHITE (CLR/WHITE); Pregs Control Bar Appear? YES (CONTROL BAR)
[2024-10-04 01:01] LABS: ALT (SGPT) Less than 7 U/L (Less than 34); AST (SGOT) 17 U/L (11-34); Albumin 3.3 g/dL (3.1-4.5); Alkaline Phosphatase 134 U/L (40-110); Anion Gap 18 mmol/L (10-20); BUN (Urea Nitrogen) 60 mg/dL (7.0-18.7); Bilirubin, Total 0.2 mg/dL (0.3-1.2); Calc. Creatinine Clearance 0 mL/min (70-130); Calcium 6.7 mg/dL (7.8-10.44); Carbon Dioxide 17 mmol/L (22-29); Chloride 109 mmol/L (98-107); Estimated GFR 9; Globulin 3.6 g/dL (2.4-3.5); Glucose 88 mg/dL (70-105); Lipase 117 U/L (8-78); Protein, Total 6.9 g/dL (6.0-8.3); Sodium 139 mmol/L (136-145)
[2024-10-04] MEDS ORDERED: CALCIUM GLUC 1 GM/NS 50 ML IV Bag ONE ×2 (01:21→03:58)
[2024-10-04 02:30] LABS: Bilirubin Negative (Negative); Blood, Urine 2+ (Negative); CAUTI Indications for Culture Dysuria,urgency,freq; Clarity Clear (Clear); Glucose, Urine (Dipstick) Normal (Negative); Ketone, Urine Negative (Negative); Leukocyte 250 Leu/uL (Negative); Nitrite Negative (Negative); Protein, Urine (Dipstick) 200 mg/dL (Neg-Trace); RBC/HPF 0-3 HPF (0-3); Specific Gravity, Urine 1.008 (1.002-1.036); Squamous Epithelial 0-3 HPF (0-3); Urobilinogen Normal mg/dL (Less than 2); WBC/HPF Greater than 50 HPF (0-3); pH, Urine 6.5 (5.0-9.0)
[2024-10-04 02:34] LABS: Bacteria/HPF 1+ HPF (None Seen)
[2024-10-04 02:44] LABS: Urine Culture Reflex Yes Yes
[2024-10-04 03:26] LABS: Calcium 6.9 mg/dL (7.8-10.44)
[2024-10-04] MEDS ORDERED: Morphine 4 MG/ML VIAL ONE (05:15)
[2024-10-04 06:06] LABS: Calcium 7.7 mg/dL (7.8-10.44)
== END 2024-10-04 06:54 | disposition home or self-care (01) ==
LOC: ERS 23:45
DX: E83.51 Hypocalcemia (principal); M54.41 Lumbago with sciatica, right side; M54.42 Lumbago with sciatica, left side; I13.11 Hypertensive heart and chronic kidney disease without heart failure, with stage 5 chronic kidney disease, or end stage renal disease; N18.6 End stage renal disease; Z79.899 Other long term (current) drug therapy
CPT/HCPCS: 36415; 80053; 81001; 83690; 84703; 85025; 87077; 87086; 96365; 96366; 96375; J0613; J2270